=== PATIENT | male | born 1970 | race Caucasian/White ===

== ENCOUNTER 2024-06-22 18:19 | Emergency (ER) | payer BC ==
--- NOTE | 2024-06-22 18:54 | ED ---
Abdominal Pain HPI - General Source: patient, RN notes reviewed Mode of arrival: ambulatory Limitations: no limitations <Dasha Bedolla - Last Filed: 06/22/24 18:52> - General Source: patient, RN notes reviewed Mode of arrival: ambulatory Limitations: no limitations <Akila Salmon - Last Filed: 06/23/24 00:13> - General Chief Complaint: Abdominal Pain Stated Complaint: Diverticulitis Time Seen by Provider: 06/22/24 18:52 - History of Present Illness Initial Comments: Quick [id number] male with history of diverticulitis presenting with left upper quadrant abdominal pain x 1 week with associated diarrhea. States he has had decreased appetite and nausea, however is tolerating orals. Denies fever or chills. Admits previous hernia repair surgery and cholecystectomy. (Dasha Bedolla) This is a 54-year-old male who presents to the emergency department for abdomina l pain. Reports left-sided abdominal pain for the last week. This is in the left upper and mid abdomen. Reports diarrhea associated with this as well as nausea. He only had 1 episode of vomiting this morning and has otherwise been able to keep things down. He has a history of diverticulitis and believes that it may be related to this again. Denies any fevers or chills. (Akila Salmon) - Related Data Previous Rx's Medication Instructions Recorded Celecoxib 200 mg PO BID PRN #30 cap 06/22/24 Dicyclomine [Bentyl] 20 mg PO QID PRN #30 tablet 06/22/24 Ondansetron Odt [Zofran Odt] 4 mg PO Q8HR PRN #20 tab 06/22/24 Allergies Allergy/AdvReac Type Severity Reaction Status Date / Time No Known Allergies Allergy Verified 06/22/24 18:30 Review of Systems ROS Other: All systems not noted in ROS Statement are negative. <Dasha Bedolla - Last Filed: 06/22/24 18:52> ROS Other: All systems not noted in ROS Statement are negative. <Akila Salmon - Last Filed: 06/23/24 00:13> ROS Statement: Those systems with pertinent positive or pertinent negative responses have been documented in the HPI. Past Medical History Additional Past Medical History / Comment(s): Diverticulitis Past Surgical History: Cholecystectomy, Hysterectomy, Orthopedic Surgery Smoking Status: Former smoker Past Alcohol Use History: Occasional Past Drug Use History: None Reported <Dasha Bedolla - Last Filed: 06/22/24 18:52> General Exam Limitations: no limitations <Dasha Bedolla - Last Filed: 06/22/24 18:52> Limitations: no limitations General appearance: alert, in no apparent distress Head exam: Present: atraumatic, normocephalic, normal inspection Respiratory exam: Present: normal lung sounds bilaterally. Absent: respiratory distress, wheezes, rales, rhonchi, stridor Cardiovascular Exam: Present: regular rate, normal rhythm, normal heart sounds. Absent: systolic murmur, diastolic murmur, rubs, gallop, clicks GI/Abdominal exam: Present: soft, tenderness (LUQ and left mid abdomen), normal bowel sounds. Absent: distended Neurological exam: Present: alert, oriented X3, CN II-XII intact Psychiatric exam: Present: normal affect, normal mood Skin exam: Present: warm, dry, intact, normal color. Absent: rash <Akila Salmon - Last Filed: 06/23/24 00:13> - General Exam Comments Initial Comments: Interval visual Physical Exam Vital signs reviewed General: Well-appearing, nontoxic, no acute distress. Head: Normocephalic, atraumatic Eyes: PERRLA, EOMI ENT: Airway patent Chest: Nonlabored breathing Skin: No visual rash, normal skin tone Neuro: Alert and oriented 3 Musculoskeletal: No gross abnormalities (Dasha Bedolla) Course Vital Signs 06/22/24 06/22/24 06/22/24 18:26 22:00 23:10 Temperature 98.6 F 97.8 F Pulse Rate 89 82 69 Respiratory 18 20 20 Rate Blood Pressure 138/86 112/58 115/73 O2 Sat by Pulse 99 96 98 Oximetry Medical Decision Making <Dasha Bedolla - Last Filed: 06/22/24 18:52> - Lab Data Result diagrams: 06/22/24 19:26 06/22/24 19:26 - Radiology Data Radiology results: report reviewed, image reviewed <Akila Salmon - Last Filed: 06/23/24 00:13> - Medical Decision Making I completed the quick note portion of this chart signed Dasha Bedolla PA-C (Dasha Bedolla) This is a 54 year old male who presents to the emergency department for abdominal pain. Was pt. sent in by a medical professional or institution? @ -No Did you speak to anyone other than the patient for history? @ -No Did you review nursing and triage notes? @ -Yes, and I agree, it is accurate with regards to the patient's symptoms. Were old charts reviewed? @ -No Differential Diagnosis? @ -Differential Abdominal Pain Men: Appendicitis, cholecystitis, diverticulosis, ischemic bowel, pancreatitis, hepatitis, UTI, gastroenteritis, AAA, incarcerated hernia, bowel obstruction, constipation, inflammatory bowel, hepatitis, peptic ulcer disease, splenic infarction, perforated viscus, testicular torsion, this is not meant to be an all-inclusive list EKG interpreted by me (3pts min.)? @ -Not obtained X-rays interpreted by me (1pt min.)? @ -Not obtained CT interpreted by me (1pt min.)? @ -CT scan of the abdomen and pelvis obtained. My interpretation identifies fluid-filled small bowel loops. U/S interpreted by me (1pt. min.)? @ -Not obtained What testing was considered but not performed? (CT, X-rays, U/S, labs)? Why? @ -None What meds were considered but not given? Why? @ -None Did you discuss the management of the patient with other professionals? @ -No Did you reconcile home meds? @ -No Was smoking cessation discussed for >3mins.? @ -No Was critical care preformed (if so, how long)? @ -No Were there social determinants of health that impacted care today? How? (Homelessness, low income, unemployed, alcoholism, drug addiction, transportation, low edu. Level, literacy, decrease access to med. care, nursing home, rehab)? @ -No Was there de-escalation of care discussed even if they declined? (Discuss DNR or withdrawal of care, Hospice)? @ -No What co-morbidities impacted this encounter? (DM, HTN, Smoking, COPD, CAD, Cancer, CVA, Hep., AIDS, mental health diagnosis, sleep apnea, morbid obesity)? @ -None Was patient admitted / discharged? @ -Discharged. Lab work demonstrates mild leukocytosis and was otherwise unremarkable. Urinalysis negative for signs of infection. CT scan of the abdomen and pelvis demonstrates multiple nondilated fluid-filled loops of small bowel and colon suggestive of ileus or gastroenteritis. Findings reviewed with the patient. Symptoms well-controlled in the emergency department. I did offer admission for possible ileus, however he declined. However, given the diarrhea, gastroenteritis would be more likely. Prescriptions for Celebrex and Zofran provided for symptomatic management. Patient discharged home in stable condition with strict return parameters. Case discussed with ED attending, Dr. Lynch. Return precautions reviewed in depth, the patient is instructed to return to the emergency department with any new, worsening, or concerning symptoms. Patient verbalized understanding. Undiagnosed new problem with uncertain prognosis? @ -None Drug Therapy requiring intensive monitoring for toxicity (Heparin, Nitro, Insulin, Cardizem)? @ -None Were any procedures done? @ -None Diagnosis/symptom? @ -Ileus, gastroenteritis Acute, or Chronic, or Acute on Chronic? @ -Acute Uncomplicated (without systemic symptoms) or Complicated (systemic symptoms)? @ -Uncomplicated Side effects of treatment? @ -None Exacerbation, Progression, or Severe Exacerbation] @ -Not applicable Poses a threat to life or bodily function? @ -No (Akila Salmon) - Lab Data Lab Results 06/22/24 06/22/24 06/22/24 Range/Units 19:26 19:26 19:26 WBC 10.8 H (3.8-10.6) k/uL RBC 4.79 (4.30-5.90) m/uL Hgb 14.9 (13.0-17.5) gm/dL Hct 44.6 (39.0-53.0) % MCV 93.2 (80.0-100.0) fL MCH 31.1 (25.0-35.0) pg MCHC 33.4 (31.0-37.0) g/dL RDW 13.5 (11.5-15.5) % Plt Count 257 (150-450) k/uL MPV 7.8 Neutrophils % 79 % Lymphocytes % 11 % Monocytes % 5 % Eosinophils % 3 % Basophils % 1 % Neutrophils # 8.5 H (1.3-7.7) k/uL Lymphocytes # 1.2 (1.0-4.8) k/uL Monocytes # 0.6 (0-1.0) k/uL Eosinophils # 0.3 (0-0.7) k/uL Basophils # 0.1 (0-0.2) k/uL Sodium 138 (137-145) mmol/L Potassium 3.9 (3.5-5.1) mmol/L Chloride 108 H (98-107) mmol/L Carbon Dioxide 24 (22-30) mmol/L Anion Gap 6 mmol/L BUN 15 (9-20) mg/dL Creatinine 0.96 (0.66-1.25) mg/dL Est GFR (CKD-EPI)AfAm >90 (>60 ml/min/1.73 sqM) Est GFR (CKD-EPI)NonAf 89 (>60 ml/min/1.73 sqM) Glucose 87 (74-99) mg/dL Plasma Lactic Acid Vahid 0.9 (0.7-2.0) mmol/L Calcium 9.5 (8.4-10.2) mg/dL Total Bilirubin 1.3 (0.2-1.3) mg/dL AST 31 (17-59) U/L ALT 40 (4-49) U/L Alkaline Phosphatase 71 (38-126) U/L Total Protein 7.5 (6.3-8.2) g/dL Albumin 4.8 (3.5-5.0) g/dL Lipase 52 (23-300) U/L Urine Color Urine Appearance (Clear) Urine pH (5.0-8.0) Ur Specific Jefferson (1.001-1.035) Urine Protein (Negative) Urine Glucose (UA) (Negative) Urine Ketones (Negative) Urine Blood (Negative) Urine Nitrite (Negative) Urine Bilirubin (Negative) Urine Urobilinogen (<2.0) mg/dL Ur Leukocyte Esterase (Negative) Urine RBC (0-5) /hpf Urine WBC (0-5) /hpf Ur Squamous Epith Cells (0-4) /hpf Urine Bacteria (None) /hpf Urine Mucus (None) /hpf 06/22/24 Range/Units 20:58 WBC (3.8-10.6) k/uL RBC (4.30-5.90) m/uL Hgb (13.0-17.5) gm/dL Hct (39.0-53.0) % MCV (80.0-100.0) fL MCH (25.0-35.0) pg MCHC (31.0-37.0) g/dL RDW (11.5-15.5) % Plt Count (150-450) k/uL MPV Neutrophils % % Lymphocytes % % Monocytes % % Eosinophils % % Basophils % % Neutrophils # (1.3-7.7) k/uL Lymphocytes # (1.0-4.8) k/uL Monocytes # (0-1.0) k/uL Eosinophils # (0-0.7) k/uL Basophils # (0-0.2) k/uL Sodium (137-145) mmol/L Potassium (3.5-5.1) mmol/L Chloride (98-107) mmol/L Carbon Dioxide (22-30) mmol/L Anion Gap mmol/L BUN (9-20) mg/dL Creatinine (0.66-1.25) mg/dL Est GFR (CKD-EPI)AfAm (>60 ml/min/1.73 sqM) Est GFR (CKD-EPI)NonAf (>60 ml/min/1.73 sqM) Glucose (74-99) mg/dL Plasma Lactic Acid Vahid (0.7-2.0) mmol/L Calcium (8.4-10.2) mg/dL Total Bilirubin (0.2-1.3) mg/dL AST (17-59) U/L ALT (4-49) U/L Alkaline Phosphatase (38-126) U/L Total Protein (6.3-8.2) g/dL Albumin (3.5-5.0) g/dL Lipase (23-300) U/L Urine Color Yellow Urine Appearance Clear (Clear) Urine pH 5.5 (5.0-8.0) Ur Specific Jefferson >1.050 H (1.001-1.035) Urine Protein Trace H (Negative) Urine Glucose (UA) Negative (Negative) Urine Ketones 2+ H (Negative) Urine Blood Small H (Negative) Urine Nitrite Negative (Negative) Urine Bilirubin Negative (Negative) Urine Urobilinogen <2.0 (<2.0) mg/dL Ur Leukocyte Esterase Negative (Negative) Urine RBC 4 (0-5) /hpf Urine WBC 1 (0-5) /hpf Ur Squamous Epith Cells <1 (0-4) /hpf Urine Bacteria Rare H (None) /hpf Urine Mucus Few H (None) /hpf Disposition <Dasha Bedolla - Last Filed: 06/22/24 18:52> Is patient prescribed a controlled substance at d/c from ED?: No Time of Disposition: 22:07 <Akila Salmon - Last Filed: 06/23/24 00:13> Clinical Impression: Gastroenteritis, Ileus Disposition: HOME SELF-CARE Instructions (If sedation given, give patient instructions): Gastroenteritis (ED), Ileus (ED) Additional Instructions: Return to the emergency department with any new, worsening, or concerning symptoms. Take the Celebrex twice daily as needed for pain relief. You may take this with Tylenol. Take the Zofran up to every 8 hours as needed for nausea and vomiting. You can take the Bentyl up to 4 times daily. This will help with diarrhea and generalized abdominal pain/cramping. Try to follow a bland diet for the next few days to give your bowels time to rest. Follow up with your primary care provider in 1-2 days. Prescriptions: Dicyclomine [Bentyl] 20 mg PO QID PRN #30 tablet PRN Reason: Gi Upset Celecoxib 200 mg PO BID PRN #30 cap PRN Reason: Pain Ondansetron Odt [Zofran Odt] 4 mg PO Q8HR PRN #20 tab PRN Reason: Nausea And Vomiting Referrals: Juanito Chavarria DO [Primary Care Provider] - 1-2 days
[2024-06-22 19:34] LABS: Basophils # (A) 0.1 k/uL (0-0.2); Basophils % (A) 1 %; Eosinophils # (A) 0.3 k/uL (0-0.7); Eosinophils % (A) 3 %; HCT 44.6 % (39.0-53.0); HGB 14.9 gm/dL (13.0-17.5); Lymphocytes # (A) 1.2 k/uL (1.0-4.8); Lymphocytes % (A) 11 %; MCH 31.1 pg (25.0-35.0); MCHC 33.4 g/dL (31.0-37.0); MCV 93.2 fL (80.0-100.0); Mean Platelet Volume 7.8; Monocytes # (A) 0.6 k/uL (0-1.0); Monocytes % (A) 5 %; Neutrophils # (A) 8.5 k/uL (1.3-7.7); Neutrophils % (A) 79 %; Platelet Count 257 k/uL (150-450); RBC 4.79 m/uL (4.30-5.90); RDW 13.5 % (11.5-15.5); WBC 10.8 k/uL (3.8-10.6)
[2024-06-22 19:44] LABS: ALT 40 U/L (4-49); AST 31 U/L (17-59); African American GFR (CKD) >90 (>60 ml/min/1.73 sqM); Albumin 4.8 g/dL (3.5-5.0); Alkaline Phosphatase 71 U/L (38-126); Anion Gap 6 mmol/L; Blood Urea Nitrogen 15 mg/dL (9-20); Calcium 9.5 mg/dL (8.4-10.2); Carbon Dioxide 24 mmol/L (22-30); Chloride 108 mmol/L (98-107); Glucose 87 mg/dL (74-99); Lipase 52 U/L (23-300); Non-African American GFR(CKD) 89 (>60 ml/min/1.73 sqM); Potassium 3.9 mmol/L (3.5-5.1); Sodium 138 mmol/L (137-145); Total Bilirubin 1.3 mg/dL (0.2-1.3); Total Protein 7.5 g/dL (6.3-8.2)
[2024-06-22] MEDS: SODIUM CHLORIDE 0.9% 1,000 ML IV STA (20:59)
[2024-06-22] MEDS: ONDANSETRON 4 MG/2 ML VIAL IVP STA (20:59)
[2024-06-22] MEDS: KETOROLAC 15 MG/ML 1 ML VIAL IVP STA ×2 (21:00→23:04)
[2024-06-22] MEDS: MORPHINE SULFATE 4 MG/ML SYRINGE IVP STA (21:01)
--- NOTE | 2024-06-22 21:12 | CT ---
EXAMINATION TYPE: CT abdomen pelvis w con DATE OF EXAM: 06/22/2024 COMPARISON: None INDICATION: Diarrhea, abdominal pain in LUQ, distention x 1 week Hx of diverticulitis DLP: 2763.4 mGycm, Automated exposure control for dose reduction was used. CONTRAST: 100 ml mL of Isovue 300. Study performed without Oral Contrast TECHNIQUE: Axial images were obtained from above the diaphragm to the pubic rami in the axial plane a t 5 mm thick sections. Reconstructed images are reviewed on the computer in the coronal plane. FINDINGS: Limited CT sections are obtained the lung bases. The lung bases are clear. CT ABDOMEN: Liver: Normal Spleen: Normal Pancreas: Normal Adrenal glands: The adrenal glands are normal. Gallbladder: Surgically absent Kidneys: No masses are evident. No hydronephrosis is present. No cysts are present. Delayed images were obtained through the kidneys, which remain unremarkable. Aorta: Normal Inferior vena cava: Normal. CT PELVIS: Multiple fluid-filled small bowel. Correlate for ileus. Gastroenteritis could be considered. No suspi cious dilated bowel. No suspicious acute diverticulitis Appendix: Normal as visualized. Urinary bladder: Normal. Genitourinary structures: Prostate is mildly prominent Osseous structures: No suspicious lytic or sclerotic lesions. IMPRESSION: 1. Multiple nondilated fluid-filled loops of small bowel and colon. Correlate for ileus or gastroent eritis. 2. Nonobstructing punctate left renal stone
[2024-06-22 21:23] LABS: Appearance,Urine Clear (Clear); Bacteria,Urine Rare /hpf; Bilirubin,Urine Negative (Negative); Blood,Urine Small (Negative); Color,Urine Yellow; Glucose,Urine (UA) Negative (Negative); Ketones,Urine 2+ (Negative); Leukocyte Esterase,Urine Negative (Negative); Mucus,Urine Few /hpf; Nitrite,Urine Negative (Negative); PH, Urine 5.5 (5.0-8.0); Protein,Urine Trace (Negative); RBC,Urine 4 /hpf (0-5); Specific Gravity,Urine >1.050 (1.001-1.035); Squamous Epithelial Cell,Urine <1 /hpf (0-4); Urobilinogen,Urine <2.0 mg/dL (<2.0); WBC,Urine 1 /hpf (0-5)
[2024-06-22 22:54] VITALS: RESP 20; TEMP 97.8
[2024-06-22] MEDS: ONDANSETRON 4 MG ODT STARTER PACK 2 TAB BTL PO STA (22:55)
[2024-06-22] MEDS: DIPHENOX-ATROP STARTER PACK 8 TAB BTL PO STA (22:55)
[2024-06-22] MEDS: ACET/COD 300 MG/30 MG STARTER PACK 6 TAB BTL PO STA (22:56)
[2024-06-22] MEDS: ACETAMINOPHEN TAB 500 MG TAB PO STA (23:02)
[2024-06-22 23:19] VITALS: BP 115/73; PULSE 69
== END 2024-06-22 23:19 | disposition home or self-care (01) ==
LOC: EC 18:19
DX: R10.9 Unspecified abdominal pain
CPT/HCPCS: 36415; 74177; 80053; 81001; 83605; 83690; 85025; 96374; 96375; 96376; 99284

== ENCOUNTER → 2024-08-17 | Outpatient (CLI) | payer BC ==
--- NOTE | 2024-08-17 16:16 | P.SLEEP ---
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 The patient has been diagnosed having obstructive sleep apnea many years back. Original diagnosis established and [facility]. Back then, the patient was diagnosed having severe obstructive sleep apnea and he was given a BiPAP machine which is currently running at a pressure of 15 over 11 cm of water. His machine is old and it has exceeded motor life span. The patient is interested in reevaluation. The patient is currently using an AirFit P10 large size nasal pillow. I checked the compliance data from his machine and I noted that the patient has been maintai caty on a pressure of 15 over 11 cm of water. His compliance over the past 30 days is noted of 100% and the patient has been averaging around 7.3 hours of CPAP/BiPAP use per night. The patient's tidal volume is 400 cc with a minute ventilation of 7.4 and his AHI is down to 0.2. No significant leaks around the mask. His weight has remained stable over the years with some limited weight gain over the past 5 years in general. He goes to bed between 10 PM and midnight and wakes up 6:30 AM in the morning. As long as he is on the BiPAP machine, the patient is alert and awake during the day. He does not miss any single treatment with his BiPAP as the patient continues to see significant benefit. For now, he has no snoring while on the BiPAP. No witnessed apneas as long as he is on the BiPAP. No nocturia. Occasional nocturnal heartburns. No restlessness in lower extremities. No palpitations. He is fully alert and awake in bed. Does not recall any motor vehicle accidents because of feeling drowsy or sleepy. He has been essentially well treated. His comorbidities include diabetes, hypertension and the patient is currently on Mounjaro and he has been having successful weight loss. No other new complaints otherwise for now. Review of Systems Constitutional: Reports fatigue, Reports weight gain Eyes: denies as per HPI, denies blurred vision, denies bulging eye, denies decreased vision, denies diplopia, denies discharge, denies dry eye, denies irritation, denies itching, denies pain, denies photophobia, denies loss of peripheral vision, denies loss of vision, denies tunnel vision/blind spots Ears: deny: decreased hearing, ear discharge, earache, tinnitus Ears, nose, mouth and throat: Reports as per HPI Breasts: absent: as per HPI, gynecomastia Cardiovascular: Reports as per HPI Respiratory: Reports sleep apnea, Reports snoring Genitourinary: Reports as per HPI Musculoskeletal: Reports as per HPI Musculoskeletal: absent: ankle pain, ankle stiffness, ankle swelling, as per HPI, elbow pain, elbow stiffness, elbow swelling, foot pain, foot stiffness, foot swelling, hand pain, hand stiffness, hand swelling, hip pain, hip stiffness, hip swelling, knee pain, knee stiffness, knee swelling, shoulder pain, shoulder stiffness, shoulder swelling, wrist pain, wrist stiffness, wrist swelling Integumentary: Reports as per HPI Neurological: Reports as per HPI Psychiatric: Reports as per HPI Past Medical History Past Medical History: Diabetes Mellitus, GERD/Reflux, Hypertension, Osteoarthritis (OA), Sleep Apnea/CPAP/BIPAP Additional Past Medical History / Comment(s): Diverticulitis, angina History of Any Multi-Drug Resistant Organisms: None Reported Past Surgical History: Cholecystectomy, Hysterectomy, Orthopedic Surgery Past Anesthesia/Blood Transfusion Reactions: No Reported Reaction Past Psychological History: No Psychological Hx Reported Smoking Status: Former smoker Past Alcohol Use History: Occasional Past Drug Use History: None Reported - Past Family History Father Family Medical History: Coronary Artery Disease (CAD), Diabetes Mellitus, Hypertension Additional Family Medical History / Comment(s): snoring,snoring Mother Family Medical History: Cancer, Pneumonia, Thyroid Disorder Brother(s) History Unknown: Yes Additional Family Medical History / Comment(s): crib Medications and Allergies Home Medications Medication Instructions Recorded Confirmed Type Celecoxib 200 mg PO BID PRN #30 cap 06/22/24 Rx Dicyclomine [Bentyl] 20 mg PO QID PRN #30 tablet 06/22/24 Rx Ondansetron Odt [Zofran Odt] 4 mg PO Q8HR PRN #20 tab 06/22/24 Rx Allergies Allergy/AdvReac Type Severity Reaction Status Date / Time No Known Allergies Allergy Verified 06/22/24 18:30 Physical Exam Vitals: Intake and Output 08/17/24 08/17/24 08/17/24 06:59 14:59 22:59 Other: Weight 136.078 kg the patient appeared well nourished and normally developed. Vital signs as documented. Head exam is unremarkable. No scleral icterus or corneal arcus noted. Neck is without jugular venous distension, thyromegaly, or carotid bruits. Carotid upstrokes are brisk bilaterally. Mallampati class IV with significant crowding of the posterior pharynx Lungs are clear to auscultation and percussion. Cardiac exam reveals the PMI to be normally sized and situated. Rhythm is regul ar. First and second heart sounds normal. No murmurs, rubs or gallops. Abdominal exam reveals normal bowel sounds, no masses, no organomegaly and no aortic enlargement. Extremities are nonedematous and both femoral and pedal pulses are normal. Examination of the skin revealed no evidence of significant rashes, suspicious appearing nevi or other concerning lesions. Neurologically, the patient is awake and alert and the patient does not have any focal neurological deficit. Cranial nerves are essentially intact. Assessment and Plan Plan: Obstructive sleep apnea, diagnosed to establish many years back to the [facility]. The patient is currently on a BiPAP at a pressure of 15 over 11 cm of water. He is coming to establish care and is interested in updating his BiPAP machine which is set at a pressure of 15/11 cm of water and is using an AirFit P10 nasal pillows. Obesity with a BMI of 41.8 Diabetes mellitus type 2 Hypertension Osteoarthritis Plan Will need a home sleep study to establish presence of sleep apnea and its severity. Was the home sleep study is available, the patient may be able to get a new BiPAP machine and I favor to utilize the same BiPAP pressure of 15 over 11 cm of water and the same mask interface and the patient utilizing an AirFit P10 nasal pillow large size. He has been extremely compliant his treatment has been successful over the years and there is no need for adjustment. As the patient is losing weight while taking Mounjaro, it would be reasonable to switch this patient to a VPAP auto at a later stage to further optimize his treatment and lower the BiPAP pressures along with his weight loss. Implement good sleep hygiene measures. Maintain regular sleep schedule. Will continue to follow. Sleep Note - Sleep Data ESS Total: 6 - Sleep Note Sleep Note: Temperature: Pulse Rate: Respiratory Rate: Blood Pressure: SpO2: Height: 5 ft 11 in Weight: 136.078 kg BMI: Neck Circumference:
== END ==
LOC: 3 N SLEEP 14:04 → EDUNIT# 14:20
PROVIDERS: ATTEND Internal Medicine Critical Care Medicine
CPT/HCPCS: 99211

== ENCOUNTER → 2024-09-07 | Outpatient (CLI) | payer BC ==
--- NOTE | 2024-09-14 23:49 | P.PCN ---
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 The patient has been diagnosed having obstructive sleep apnea many years back. Original diagnosis established and [facility]. Back then, the patient was diagnosed having severe obstructive sleep apnea and he was given a BiPAP machine which is currently running at a pressure of 15/11 cm of water. His machine is old and it has exceeded motor life span. The patient is interested in reevaluation. The patient is currently using an AirFit P10 large size nasal pillow. I checked the compliance data from his machine and I noted that the patient has been maintained on a pressure of 15 over 11 cm of water. His compliance over the past 30 days is noted of 100% and the patient has been averaging around 7.3 hours of CPAP/BiPAP use per night. The patient's tidal volume is 400 cc with a minute ventilation of 7.4 and his AHI is down to 0.2. No significant leaks around the mask. His weight has remained stable over the years with some limited weight gain over the past 5 years in general. He goes to bed between 10 PM and midnight and wakes up 6:30 AM in the morning. As long as he is on the BiPAP machine, the patient is alert and awake during the day. He does not miss any single treatment with his BiPAP as the patient continues to see significant benefit. For now, he has no snoring while on the BiPAP. No witnessed apneas as long as he is on the BiPAP. No nocturia. Occasional nocturnal heartburns. No restlessness in lower extremities. No palpitations. He is fully alert and awake in bed. Does not recall any motor vehicle accidents because of feeling drowsy or sleepy. He has been essentially well treated. His comorbidities include diabetes, hypertension and the patient is currently on Mounjaro and he has been having successful weight loss. No other new complaints otherwise for now. Pertinent physical findings the patient has a body mass index of 41.8 Technical description The [employer] Ap[employer] system was used to complete his home sleep study. This is a type III home sleep study evaluation. Total recording duration was 6 hours and 8 minutes. The study started at 10:52 PM and ended at 5 AM. There was a total of 6 hours and 6 minutes of flow evaluation and 5 hours and 57 minutes of oxygen saturation evaluation Results Respiratory evaluation showed a total of 10 obstructive apneas and a total of 108 obstructive hypopneas and the resulting AHI was 19.3 consistent with moderately severe obstructive sleep apnea Oxygenation analysis The patient had a baseline pulse ox 96% on room air oxygen while awake. Average pulse ox during sleep was 93% with a minimum pulse ox of 84% and the patient spent only 3 minutes of the sleep time with a pulse ox of less than 89%. Cardiac summary The average heart rate was 69 with a minimum heart rate of 59 and a maximum heart rate of 93 Assessment Obstructive sleep apnea, moderate severe with an AHI of 19.3. Noted the patient has history of Obstructive sleep apnea, diagnosed to establish many years back to the [facility]. The patient is currently on a BiPAP at a pressure of 15/11 cm of water and is using an AirFit P10 nasal pillows. Obesity with a BMI of 41.8 Diabetes mellitus type 2 Hypertension Osteoarthritis Plan The patient may be able to get a new BiPAP machine and I favor to utilize the same BiPAP pressure of 15/11 cm of water and the same mask interface and the patient utilizing an AirFit P10 nasal pillow large size. As the patient is losing weight while taking Mounjaro, it would be reasonable to switch this patient to a VPAP auto to further optimize his treatment and lower the BiPAP pressures along with his weight loss. Implement good sleep hygiene measures. Maintain regular sleep schedule. Will continue to follow.
== END ==
LOC: 3 N SLEEP 16:43
PROVIDERS: ATTEND Internal Medicine Critical Care Medicine
DX: G47.33 Obstructive sleep apnea (adult) (pediatric) (principal); E66.9 Obesity, unspecified; I10 Essential (primary) hypertension; M19.90 Unspecified osteoarthritis, unspecified site; E11.9 Type 2 diabetes mellitus without complications; Z68.41 Body mass index [BMI] 40.0-44.9, adult; Z79.899 Other long term (current) drug therapy